=== PATIENT | female | born 1970 | race Caucasian/White ===

== ENCOUNTER 2018-12-25 22:05 | Emergency (ER) | payer BC ==
--- NOTE | 2018-12-26 00:27 | ED ---
Back Pain - HPI Summary HPI Summary: This patient is a 48 year old F presenting to ED with a chief complaint of intermittent back pain since 12/21/18 worsening today. The pain radiates down the legs bilaterally. She has sciatica but reports this feels different. She states that lying down and walking are easier than sitting. She reports its easier to raise the right leg. Patient is taking an anti-inflammatory for her foot, but it does not help her back. The patient rates the pain 10/10 in severity. Symptoms aggravated by sitting. Symptoms alleviated by nothing. Patient denies fever. - History of Current Complaint Chief Complaint: EDBackInjuryPain Stated Complaint: EXTREME BACK PAIN PER PT Time Seen by Provider: 12/26/18 00:05 Hx Obtained From: Patient Onset/Duration: Lasting Days - Since 12/21/18, Still Present, Worse Since Onset/Duration: Started Days Ago - Since 12/21/18, Still Present Timing: Intermittent Back Pain Location: Is Discrete @ - Low back, Radiates To - Legs bilaterally Severity Initially: Severe Severity Currently: Severe Pain Intensity: 10 Pain Scale Used: 0-10 Numeric Aggravating Symptom(s): Other - Sitting Alleviating Symptom(s): Nothing Associated Signs And Symptoms: Negative: Fever - Allergies/Home Medications Allergies/Adverse Reactions: Allergies Allergy/AdvReac Type Severity Reaction Status Date / Time bee venom protein (honey bee) Allergy Anaphylatic Verified 12/26/18 00:57 Shock Penicillins Allergy Anaphylatic Verified 12/26/18 00:57 Shock Home Medications: Home Medications Diclofenac 12/26/18 [History] Synthroid 175 mcg PO DAILY 12/26/18 [History Confirmed 12/26/18] Wymzya Fe Chewable Tablet 0.4 mg PO DAILY 12/26/18 [History Confirmed 12/26/18] PMH/Surg Hx/FS Hx/Imm Hx Endocrine/Hematology History: Denies: Hx Diabetes Cardiovascular History: Denies: Hx Hypertension Respiratory History: Denies: Hx Asthma, Hx Chronic Obstructive Pulmonary Disease (COPD) History: Reports: Other Problems/Disorders - endometriosis Neurological History: Reports: Other Neuro Impairments/Disorders - Sciatica - Surgical History Surgery Procedure, Year, and Place: 1983 abdominal hernia Infectious Disease History: No Infectious Disease History: Denies: Traveled Outside the [place] in Last 30 Days - Family History Known Family History: Negative: Hypertension, Diabetes - Social History Alcohol Use: Occasionally Hx Substance Use: No Substance Use Type: Reports: None Hx Tobacco Use: No Smoking Status (MU): Never Smoked Tobacco Review of Systems Negative: Fever Musculoskeletal: Other - Back pain, radiates to legs All Other Systems Reviewed And Are Negative: Yes Physical Exam - Summary Physical Exam Summary: VITAL SIGNS: Reviewed. GENERAL: Patient is a well-developed and nourished female who is lying comfortable in the stretcher. Patient is not in any acute respiratory distress. HEAD AND FACE: No signs of trauma. No ecchymosis, hematomas or skull depressions. No sinus tenderness. EYES: PERRLA, EOMI x 2, No injected conjunctiva, no nystagmus. EARS: Hearing grossly intact. Ear canals and tympanic membranes are within normal limits. MOUTH: Oropharynx within normal limits. NECK: Supple, trachea is midline, no adenopathy, no JVD, no carotid bruit, no c- spine tenderness, neck with full ROM CHEST: Symmetric, no tenderness at palpation LUNGS: Clear to auscultation bilaterally. No wheezing or crackles. CVS: Regular rate and rhythm, S1 and S2 present, no murmurs or gallops appreciated. ABDOMEN: Soft, non-tender. No signs of distention. No rebound no guarding, and no masses palpated. Bowel sounds are normal. EXTREMITIES: FROM in all major joints, no edema, no cyanosis or clubbing. NEURO: Alert and oriented x 3. No acute neurological deficits. Speech is normal and follows commands. SKIN: Dry and warm MUSCULOSKELETAL: lumbosacral tenderness Triage Information Reviewed: Yes Vital Signs On Initial Exam: Initial Vitals Temp Pulse Resp BP Pulse Ox 97.6 F 76 16 160/104 98 12/25/18 22:14 12/25/18 22:14 12/25/18 22:14 12/25/18 22:14 12/25/18 22:14 Vital Signs Reviewed: Yes Diagnostics - Vital Signs Vital Signs Temp Pulse Resp BP Pulse Ox 12/25/18 22:14 97.6 F 76 16 160/104 98 - Laboratory Lab Statement: Any lab studies that have been ordered have been reviewed, and results considered in the medical decision making process. Re-Evaluation - Re-Evaluation First Eval Re-Evaluation Time: 02:11 Change: Improved Comment: Patient reports feeling better. Patient will be discharged home with dx of sciatica. I instructed patient to take her anti-inflammatories along with the steroids I am prescribing. I also advised heat pads. She understands and agrees with this plan. Back Pain Course/Dx - Course Course Of Treatment: This patient is a 48 year old F presenting to ED with a chief complaint of intermittent back pain since 12/21/18 worsening today. In the ED course, patient received Toradol, Ativan, Reglan, and morphine. Patient reports feeling better. Patient will be discharged home with dx of sciatica. I instructed patient to take her anti-inflammatories along with the steroids I am prescribing. I also advised heat pads. She understands and agrees with this plan. - Diagnoses Provider Diagnoses: Sciatica Discharge - Sign-Out/Discharge Documenting (check all that apply): Patient Departure - Discharge Patient Received Moderate/Deep Sedation with Procedure: No - Discharge Plan Condition: Stable Disposition: HOME Prescriptions: Dexamethasone TAB* [Decadron TAB*] 4 mg PO BID #10 tab oxyCODONE/Acetamin 5/325 MG* [Percocet 5/325 TAB*] 1 tab PO Q6H PRN #[id number] tab MDD 4 PRN Reason: Pain Patient Education Materials: Sciatica (ED) [place]: [facility] [place] [facility] [place]] - 2 Days Additional Instructions: Follow up with your primary care provider in 1-2 days. RETURN TO THE ER FOR WORSENING OR CHANGING SYMPTOMS. - Attestation Statements Document Initiated by Scribe: Yes Documenting Scribe: Michael Lee Provider For Whom Scribe is Documenting (Include Credential): Clair Rodriguez MD Scribe Attestation: I, Michael Lee, scribed for Clair Rodriguez MD on 12/26/18 at 0216. Status of Scribe Document: Ready
[2018-12-26] MEDS ORDERED: Ketorolac INJ* 30 MG/ML 1 ML VIAL IV PUSH ONE (00:30)
[2018-12-26] MEDS ORDERED: Lorazepam PYXIS KEY PRN (00:30)
[2018-12-26] MEDS ORDERED: Metoclopramide IV* 5 MG/ML 2 ML VIAL IV SLOW PU ONE (00:30)
[2018-12-26] MEDS ORDERED: Morphine 4 MG/ML VIAL (1 ml) 4 MG/ML VIAL IV ONE (00:30)
[2018-12-26] MEDS ORDERED: LORazepam INJ* 2 MG/ML 1 ML VIAL IV PUSH ONE (00:30)
[2018-12-26 02:33] VITALS: BP 136/92
== END 2018-12-26 02:32 | disposition home or self-care (01) ==
LOC: ED 22:05
DX: M54.30 Sciatica, unspecified side (principal); Z79.899 Other long term (current) drug therapy; Z88.0 Allergy status to penicillin
CPT/HCPCS: 96374; 96375; 99282; J1885; J2060; J2270; J2765